=== PATIENT | male | born 1940 | race Caucasian/White ===

== ENCOUNTER 2018-11-05 09:55 | Emergency (ER) | payer MEDICARE, OTHER ==
[2018-11-05] MEDS ORDERED: OXYCODONE HCL IR 5 MG TABLET PO ONE (10:57)
--- NOTE | 2018-11-05 10:59 | ER Document Report ---
ED General - General Chief Complaint: Facial Swelling Stated Complaint: POSSIBLE ALLERGIC REACTION Time Seen by Provider: 11/05/18 10:01 Notes: Patient is a 78-year-old male that presents to the emergency department for chief complaint of lip swelling. Patient states that he was taking oxycodone for pain, after his bilateral total knee arthroplasty, but they switched him to codeine 15mg tablets, because the oxycodone was not helping, he took a dose Tuesday night, and then a second dose last night, before going to bed, he woke up early this morning around 4 AM and noticed that his left lip seems swollen, and then it progressed onto the right side, and it seemed to get worse so he decided to call EMS to bring him to the emergency department. EMS administered 125 mg of Solu-Medrol, 0.3 mg of IM epinephrine, 50 mg of ranitidine, and 25 mg of Benadryl. Patient states that he denied having any shortness of breath or difficulty breathing, or wheezing, nausea, vomiting lightheadedness or abdominal pain. He states that he feels that the lip swelling is going down to a degree. Denies having any throat pain or throat itching. Past Medical History: Osteoarthritis, BPH Past Surgical History: Bilateral total knee arthroplasty Social History: Denies tobacco, alcohol or drug use. Family History: Reviewed and noncontributory for presenting illness Allergies: Reviewed, see documented allergy list. REVIEW OF SYSTEMS: Other than noted above, the 12 point review of systems was reviewed with the patient and were negative, all pertinent findings are included in the HPI. PHYSICAL EXAMINATION: Vital signs reviewed, nursing noted reviewed. GENERAL: Well-appearing, well-nourished and in no acute distress. HEAD: Atraumatic, normocephalic. EYES: Eyes appear normal, extraocular movements intact, sclera anicteric, conjunctiva are normal. ENT: nares patent, oropharynx clear without exudates. Moist mucous membranes. Lower lip angioedema noted, soft, nontender, no uvular edema, posterior pharynx is clear and open. The tongue is soft, no tongue angioedema. NECK: Normal range of motion, supple without lymphadenopathy LUNGS: Breath sounds clear to auscultation bilaterally and equal. No wheezes rales or rhonchi. HEART: Regular rate and rhythm without murmurs ABDOMEN: Soft, nontender, normoactive bowel sounds. No rebound, guarding, or rigidity. No masses appreciated. EXTREMITIES: Pain with range of motion of the knees bilaterally, but this is chronic and unchanged, as patient recently had total knee arthroplasty, no appreciation of erythema, or significant warmth, or evidence of infection on exam, scars appear to be healing well. Otherwise his extremity exam is grossly unremarkable, with good range of motion, no pitting or edema. NEUROLOGICAL: No focal neurological deficits. Moves all extremities spontan eously Motor and sensory grossly intact on exam. PSYCH: Normal mood, normal affect. SKIN: Warm, Dry, normal turgor, no rashes or lesions noted on exposed skin - Related Data Allergies/Adverse Reactions: codeine Allergy (Severe, Verified 11/05/18 10:59) Lips swelled Past Medical History - Social History Smoking Status: Former Smoker Frequency of alcohol use: None Drug Abuse: None Family History: Reviewed & Not Pertinent Patient has suicidal ideation: No Patient has homicidal ideation: No - Past Medical History Cardiac Medical History: Reports: Hx Hypercholesterolemia Pulmonary Medical History: Reports: Hx COPD - +sleep apnea Renal/ Medical History: Denies: Hx Peritoneal Dialysis Past Surgical History: Reports: Hx Appendectomy, Hx Orthopedic Surgery - b/l TKRs 08/2018, L rotator cuff, Hx Tonsillectomy - Immunizations Hx Diphtheria, Pertussis, Tetanus Vaccination: Yes Physical Exam - Vital signs Vitals: Temp Resp BP Pulse Ox 98.4 F 16 170/67 H 98 11/05/18 10:03 11/05/18 10:03 11/05/18 10:03 11/05/18 10:03 Course - Re-evaluation Re-evalutation: Patient seen and examined vital signs reviewed. Patient was evaluated and treated as appropriate for the patient's presenting symptoms and complaint, with consideration of any critical or life threatening conditions that may be associated with their obtained history and exam as noted above. Patient was treated with medications as administered by EMS The patient was re-evaluated and was stable, no tongue edema or uvular edema, patient was monitored for over an hour after epinephrine administration, no tachycardia, or chest pain. Evaluation was most consistent with angioedema, suspected allergic reaction secondary to codeine as this was a second dose when he had the angioedema episode. Patient was advised as far as pain control, to take oxycodone as prescribed, and take scheduled Tylenol as well as warm compresses to help with pain. Plan of care was discussed with the patient at this point, after careful consideration I feel that that patient can be discharged from the emergency department, the patient was educated treatments and reasons to return to the emergency department based on their presumed diagnosis as noted above, they were advised to followup with a primary care physician in 2-3 days. Patient was agreeable to plan of care. *Note is created using voice recognition software and may contain spelling, syntax or grammatical errors. - Vital Signs Vital signs: Temp Pulse Resp BP Pulse Ox 97.6 F 14 157/71 H 96 11/05/18 11:38 11/05/18 11:31 11/05/18 11:31 11/05/18 11:31 Discharge - Discharge Clinical Impression: Allergic reaction Qualifiers: Encounter type: initial encounter Qualified Code(s): T78.40XA - Allergy, unspecified, initial encounter Angioedema Qualifiers: Encounter type: initial encounter Qualified Code(s): T78.3XXA - Angioneurotic edema, initial encounter Knee pain Qualifiers: Chronicity: chronic Laterality: bilateral Qualified Code(s): M25.561 - Pain in right knee Condition: Stable Disposition: HOME, SELF-CARE Instructions: Acute Allergic Reaction to Drugs ([facility]) Additional Instructions: Please monitor for signs of worsening allergic reaction including worsening lip swelling or tongue swelling or difficulty breathing or feeling like her throat is closing. You should start taking Tylenol 1000 mg (the 2 extra strength Tylenol) every 8 hours, do not take any more or less than this, to help with your baseline pain. He should also take the prescribed oxycodone as needed every 6-8 hours for breakthrough type pain, I would encourage you to take this 30 minutes prior to any strenuous activity such as physical therapy. He should be aware that he cannot drive, or operate any machinery or tools while taking oxycodone. You should also use cool or warm compresses for 20 minutes on and 20 minutes off to both your knees to help with swelling and pain. Please follow-up with your primary care physician as well as orthopedic surgeon. Prescriptions: RX: Oxycodone HCl 15 mg PO Q8H PRN #15 tablet PRN Reason: knee pain Referrals: RACHAEL FRANK MD [Primary Care Provider] - Follow up as needed
[2018-11-05 11:34] VITALS: BP 157/71
== END 2018-11-05 11:40 | disposition home or self-care (01) ==
LOC: ER 09:55
DX: T78.3XXA Angioneurotic edema, initial encounter (principal); M25.561 Pain in right knee; J44.9 Chronic obstructive pulmonary disease, unspecified; Z96.653 Presence of artificial knee joint, bilateral; Z87.891 Personal history of nicotine dependence
CPT/HCPCS: 99283; A9270

== ENCOUNTER 2018-11-24 23:05 | Emergency (ER) | payer MEDICARE, OTHER ==
[2018-11-24] MEDS ORDERED: EPINEPHRINE INJ/PF 1 MG/1 ML AMPULE IM ONE (23:40)
[2018-11-24] MEDS ORDERED: DIPHENHYDRAMINE HCL 50 MG/ML VIAL IV ONE (23:41)
[2018-11-24] MEDS ORDERED: METHYLPREDNISOLONE INJ 125 MG/2 ML SDV IV ONE (23:41)
[2018-11-24] MEDS ORDERED: FAMOTIDINE INJ/PF 20 MG/2 ML SDV IV ONE (23:41)
--- NOTE | 2018-11-24 23:43 | ER Document Report ---
ED Medical Screen (RME) - General Chief Complaint: Allergic Reaction Stated Complaint: POSSIBLE ALLERGIC REACTION Time Seen by Provider: 11/24/18 23:39 Primary Care Provider: RACHAEL FRANK MD [Primary Care Provider] - Follow up as needed Notes: 78-year-old male with chief complaint of facial swelling, symptoms started just prior to arrival, he states he had the same symptoms just over 2 weeks ago when he started taking codeine, he is being given Percocet for his knees. He reports feeling itching over his body, denies difficulty swallowing or breathing, denies any other symptoms. Generally very healthy with mild COPD as his only reported history at this time. TRAVEL OUTSIDE OF THE [place] IN LAST 30 DAYS: No - Related Data Allergies/Adverse Reactions: codeine Allergy (Severe, Verified 11/05/18 10:59) Lips swelled Past Medical History - Past Medical History Cardiac Medical History: Reports: Hx Hypercholesterolemia Pulmonary Medical History: Reports: Hx COPD - +sleep apnea Renal/ Medical History: Denies: Hx Peritoneal Dialysis Past Surgical History: Reports: Hx Appendectomy, Hx Orthopedic Surgery - b/l TKRs 08/2018, L rotator cuff, Hx Tonsillectomy - Immunizations Hx Diphtheria, Pertussis, Tetanus Vaccination: Yes Course - Re-evaluation Re-evalutation: Per the previous note when this happened I am epinephrine, 25 mg of IV Benadryl, to 125 mg of IV Solu-Medrol, and an H2 oni without any adverse effects and complete resolution of patient's symptoms. This was ordered. Doctor's Discharge - Discharge Referrals: RACHAEL FRANK MD [Primary Care Provider] - Follow up as needed
--- NOTE | 2018-11-25 00:02 | ER Document Report ---
ED General - General Chief Complaint: Allergic Reaction Stated Complaint: POSSIBLE ALLERGIC REACTION Time Seen by Provider: 11/24/18 23:39 Primary Care Provider: RACHAEL FRANK MD [Primary Care Provider] - 11/27/18 Notes: Patient is a very pleasant 78-year-old male who presents with complaint of allergic reaction. Said today he started having some swelling to left side of face. He did not initially notice a rash but on evaluation as he does get hives over his torso which he just now noticed now in our new. He had a similar reaction that was much more severe about 2 weeks ago after being started on codeine. Codeine was stopped and he was placed back on oxycodone. He says over the last 1-2 days he is taking the oxycodone more frequently and then today started having a reaction. He is unsure if it is related to the oxycodone but there is no other new medications that he has been started on. He does not take any SANJANA inhibitors or any medication for high blood pressure. He denies any difficulty breathing or swallowing at this time. He has no other complaints at this time. He was placed on the oxycodone by his orthopedist because of knee surgery back in August. TRAVEL OUTSIDE OF THE [place] IN LAST 30 DAYS: No - Related Data Allergies/Adverse Reactions: codeine Allergy (Severe, Verified 11/05/18 10:59) Lips swelled oxycodone Allergy (Severe, Verified 11/25/18 02:55) Lips swelled Past Medical History - Social History Smoking Status: Former Smoker Frequency of alcohol use: None Drug Abuse: None Family History: Reviewed & Not Pertinent - Past Medical History Cardiac Medical History: Reports: Hx Hypercholesterolemia Pulmonary Medical History: Reports: Hx COPD - +sleep apnea Renal/ Medical History: Denies: Hx Peritoneal Dialysis Past Surgical History: Reports: Hx Appendectomy, Hx Orthopedic Surgery - b/l TKRs 08/2018, L rotator cuff, Hx Tonsillectomy - Immunizations Hx Diphtheria, Pertussis, Tetanus Vaccination: Yes Review of Systems - Review of Systems Notes: My Normal Review Basic REVIEW OF SYSTEMS: CONSTITUTIONAL : Denies fever, chills, or sweats. Denies recent illness. EENT: Facial swelling on left side RESPIRATORY: Denies cough, cold, or chest congestion. Denies shortness of breath, difficulty breathing, or wheezing. GASTROINTESTINAL: Denies abdominal pain. Denies nausea, vomiting, or diarrhea. GENITOURINARY: Denies difficulty urinating, painful urination, burning, frequency, or blood in urine. SKIN: Hives-like lesions on torso NEUROLOGICAL: Denies altered mental status or loss of consciousness. ALL OTHER SYSTEMS REVIEWED AND NEGATIVE. Physical Exam - Vital signs Vitals: Resp Pulse Ox 13 97 11/24/18 23:54 11/24/18 23:54 - Notes Notes: General Appearance: Well nourished, alert, cooperative, no acute distress, no obvious discomfort. Vitals: reviewed, See vital signs table. Head: no swelling or tenderness to the head Eyes: PERRL, EOMI, Conjuctiva clear Mouth: Swelling to the left side of face and into the left lower lip. No tongue swelling. No pharyngeal swelling. End of the secretions without difficulty. Lungs: No wheezing, No rales, No rhonci, No accessory muscle use, good air exchange bilaterally. Heart: Normal rate, Regular rythm, No murmur, no rub Abdomen: Normal BS, soft, No rigidity, No abdominal tenderness, No guarding, no rebound Extremities: good pulses in all extremities, no swelling or tenderness in the extremities, no edema. Skin: Few hives-like lesions on abdomen. Neuro: speech clear, oriented x 3, normal affect, responds appropriately to questions. Course - Re-evaluation Re-evalutation: 11/25/18 01:39 On reevaluation patient swelling is going down and he is feeling improved. 11/25/18 02:37 Facial swelling is gone. Patient continues look well and feels improved. Patient will be discharged home with instructions to stop oxycodone. I will start him on gabapentin to see if this helps with his pain and to help prevent any withdrawal from opiate medications. Encouraged him to take Tylenol Motrin for pain. Patient agrees with plan will be discharged home. 11/25/18 06:45 Dictation of this chart was performed using voice recognition software; therefore, there may be some unintended grammatical errors. - Vital Signs Vital signs: Temp Pulse Resp BP Pulse Ox 16 145/69 H 94 11/25/18 02:21 11/25/18 02:21 11/25/18 02:21 Discharge - Discharge Clinical Impression: Facial swelling Allergic reaction Qualifiers: Encounter type: initial encounter Qualified Code(s): T78.40XA - Allergy, unspecified, initial encounter Condition: Good Disposition: HOME, SELF-CARE Additional Instructions: Please top taking the oxycodone. You can take Tylenol and Ibuprofen to help with your knee pain. I have prescribed gabapentin to help diminish and withdrawl from stopping the oxycodone. the gabapentin will sometimes cause sleepiness similar to the oxycodone. Do not stop the gabapentin abruptly. You will need to be weaned down off of it by your doctor. Please follow up with your doctor on tuesday for reevaluation. please return to the ER immediately if you develop vomiting, severe pain, recurrent rash, or recurrent facial swelling. Prescriptions: RX: Gabapentin [Neurontin 100 mg Capsule] 100 mg PO TID #30 capsule Ondansetron [Zofran Odt 4 mg Tablet] 1 tab PO Q4H PRN #15 tab.rapdis PRN Reason: For Nausea/Vomiting Referrals: RACHAEL FRANK MD [Primary Care Provider] - 11/27/18
[2018-11-25 02:26] VITALS: BP 145/69
== END 2018-11-25 02:53 | disposition home or self-care (01) ==
LOC: ER 23:05
DX: R22.0 Localized swelling, mass and lump, head (principal); T78.40XA Allergy, unspecified, initial encounter; X58.XXXA Exposure to other specified factors, initial encounter; E78.00 Pure hypercholesterolemia, unspecified; J44.9 Chronic obstructive pulmonary disease, unspecified; Z96.653 Presence of artificial knee joint, bilateral; Z88.6 Allergy status to analgesic agent
CPT/HCPCS: 99283; 96374; 96375; J1200; J2930; S0028

== ENCOUNTER 2018-12-04 07:15 | Emergency (ER) | payer MEDICARE, OTHER ==
[2018-12-04] MEDS ORDERED: FAMOTIDINE INJ/PF 20 MG/2 ML SDV IV ONE (07:35)
[2018-12-04] MEDS ORDERED: DIPHENHYDRAMINE HCL 50 MG/ML VIAL IV ONE ×2 (07:35→07:36)
[2018-12-04] MEDS ORDERED: EPINEPHRINE INJ/PF 1 MG/1 ML AMPULE IM ONE (07:35)
[2018-12-04] MEDS ORDERED: METHYLPREDNISOLONE INJ 125 MG/2 ML SDV IV ONE (07:35)
--- NOTE | 2018-12-04 07:42 | ER Document Report ---
ED General - General Chief Complaint: Allergic Reaction Stated Complaint: POSSIBLE ALLERGIC REACTION Primary Care Provider: RACHAEL FRANK MD [Primary Care Provider] - Follow up as needed TRAVEL OUTSIDE OF THE [place] IN LAST 30 DAYS: No - HPI Notes: Patient is an 78-year-old male with a history of obstructive sleep apnea, COPD, chronic knee pain status post knee replacements who presents emergency dep artment complaining of sensation of tongue and throat swelling with difficulty speaking at times that began this morning with associated nasal andreina/discharge. Patient has been to the emergency department 2 other times this past month for allergic reactions. The first time was when his lip was swelling and he is not on any SANJANA inhibitor or R. The second time was on November 24 and he was found to have a hives-like reaction with left-sided facial swelling. Patient states that this time it is just his tongue and throat with no other corresponding symptoms. Patient states that he is still able to eat and drink. He has been urinating normally. He has not had any other recent illness or changes medicines aside from starting gabapentin on November 24 with the last dose being 2 days ago. No other travel, new foods/detergents/soaps. No known insect bite. Denies any headache, fever, neck pain, changes in vision/speech/mentation/hearing, sore throat, chest pain, palpitations, syncope, cough, shortness of breath, wheeze, dyspnea, abdominal pain, nausea/vomiting/diarrhea, urinary retention, dysuria, hematuria, or rash. - Related Data Allergies/Adverse Reactions: codeine Allergy (Severe, Verified 11/05/18 10:59) Lips swelled oxycodone Allergy (Severe, Verified 11/25/18 02:55) Lips swelled Past Medical History - Social History Smoking Status: Former Smoker Family History: Reviewed & Not Pertinent - Past Medical History Cardiac Medical History: Reports: Hx Hypercholesterolemia Pulmonary Medical History: Reports: Hx COPD - +sleep apnea Renal/ Medical History: Denies: Hx Peritoneal Dialysis Past Surgical History: Reports: Hx Appendectomy, Hx Orthopedic Surgery - b/l TKRs 08/2018, L rotator cuff, Hx Tonsillectomy - Immunizations Hx Diphtheria, Pertussis, Tetanus Vaccination: Yes Review of Systems - Review of Systems -: Yes All other systems reviewed and negative Physical Exam - Vital signs Vitals: Resp BP Pulse Ox 13 137/73 H 100 12/04/18 07:22 12/04/18 07:22 12/04/18 07:22 - Notes Notes: PHYSICAL EXAMINATION: GENERAL: Well-appearing, well-nourished and in no acute distress. A&Ox4. An swers questions appropriately. Moves comfortably w/o notable distress HEAD: Atraumatic, normocephalic. EYES: Pupils equal round and reactive to light, extraocular movements intact, sclera anicteric, conjunctiva are normal. ENT: EAC clear b/l. TM's intact b/l without erythema, fluid, or perforation. Nares patent and with clear discharge. oropharynx no erythema without exudates. Tonsils absent. No palatine shift. Uvula midline. No tongue protrusion. No drooling, hoarseness, or airway compromise. Moist mucous membranes. No sinus tenderness. No obvious significant lip/tongue/throat swelling at this time. + mild uvula swelling. NECK: Normal range of motion, supple without lymphadenopathy. No rigidity/meningismus. LUNGS: Breath sounds clear to auscultation bilaterally and equal. No wheezes rales or rhonchi. No retractions HEART: Regular rate and rhythm without murmurs, rubs, gallops. ABDOMEN: Soft, nontender, nondistended abdomen. No guarding, no rebound. No masses appreciated. Normal bowel sounds present. No CVA tenderness bilaterally. No hepatosplenomegaly. NEUROLOGICAL: Normal speech, normal gait. Normal sensory, motor exams PSYCH: Normal mood, normal affect. SKIN: Warm, Dry, normal turgor, no rashes or lesions noted. Course - Re-evaluation Re-evalutation: 12/04/18 07:41 Pt was immediately placed on monitor and pulse ox. Pt will be given solumedrol, benadryl, pepcid, and epinephrine. He did receive 25mg benadryl by EMS. Vitals and exam acceptable at this time. 12/04/18 12:47 Patient is an afebrile, well-hydrated, 78-year-old male who presents with uvulitis, suspect viral. Vitals are acceptable without significant tachycardia, tachypnea, or hypoxia. PE is otherwise unremarkable. Patient is nontoxic- appearing and is tolerating p.o. without difficulty. Patient has not had any deterioration in symptoms. Patient was given site Solu-Medrol, Benadryl, Pepcid, and I am epinephrine upon arrival. No labs or imaging warranted at this time. Dr. Paige was consulted who also eval'd the patient and is in agreement with assessment/plan. Low suspicion for any meningitis, sepsis, peritonsillar/pharyngeal abscess, respiratory compromise, Elio's, or other emergent systemic condition at this time. Patient is aware this condition can change from initial presentation and he needs to monitor symptoms closely. I will send him home with a prescription for a steroid taper. Patient denies being diabetic. Conservative measures otherwise for symptoms. Recheck with your PCM in 1-2 days. Return to the ED with any worsening/concerning symptoms otherwise as reviewed in discharge. Patient is in agreement. - Vital Signs Vital signs: Temp Pulse Resp BP Pulse Ox 97.8 F 13 150/77 H 94 12/04/18 07:27 12/04/18 11:01 12/04/18 11:01 12/04/18 11:01 Discharge - Discharge Clinical Impression: Uvulitis Condition: Stable Disposition: HOME, SELF-CARE Instructions: Uvula Swelling ([facility]) Additional Instructions: Maintain adequate fluid intake Take meds as directed Salt water gargles, throat sprays, mouthwash rinse, peroxide gargles tylenol/ibuprofen as needed over the counter cold medication as needed for symptoms F/u: with your PCM in 1-2 days for a recheck Consider consult with ENT for ongoing/worsening symptoms Return to the ED with any fever, worsening pain, chest pain, neck pain/stiffness, shortness of breath, cough, drooling, trouble swallowing/breathing, abdominal pain, n/v/d, rash, or worsening/concerning symptoms otherwise. Prescriptions: Prednisone [Deltasone 10 mg Tablet] 10 mg PO DAILY #18 tablet Forms: Elevated Blood Pressure Referrals: MANUEL PENALOZA DO [ASSOCIATE] - Follow up as needed RACHAEL FRANK MD [Primary Care Provider] - Follow up tomorrow
[2018-12-04] MEDS ORDERED: NORMAL SALINE 1000 ML 1,000 ML IV ONE (08:51)
[2018-12-04 13:10] VITALS: BP 141/72
== END 2018-12-04 13:14 | disposition home or self-care (01) ==
LOC: ER 07:15
DX: K12.2 Cellulitis and abscess of mouth (principal); J44.9 Chronic obstructive pulmonary disease, unspecified; R09.81 Nasal congestion; Z88.5 Allergy status to narcotic agent; Z87.891 Personal history of nicotine dependence
CPT/HCPCS: 99284; 96372; 96361; 96374; 96375; J1200; J0171; J2930; J7030; S0028

== ENCOUNTER 2018-12-25 09:01 | Emergency (ER) | payer MEDICARE, OTHER ==
[2018-12-25] MEDS ORDERED: DIPHENHYDRAMINE HCL 50 MG/ML VIAL IV ONE (09:32)
[2018-12-25] MEDS ORDERED: METHYLPREDNISOLONE INJ 125 MG/2 ML SDV IV ONE (09:33)
[2018-12-25] MEDS ORDERED: FAMOTIDINE INJ/PF 20 MG/2 ML SDV IV ONE (09:33)
--- NOTE | 2018-12-25 09:35 | ER Document Report ---
ED Medical Screen (RME) - General Chief Complaint: Allergic Reaction Stated Complaint: POSSIBLE ALLERGIC REACTION Time Seen by Provider: 12/25/18 09:32 Primary Care Provider: RACHAEL FRANK MD [Primary Care Provider] - Follow up as needed Mode of Arrival: Ambulatory Information source: Patient Notes: 78-year-old male presents with right-sided facial swelling and lip swelling that started yesterday. Patient has had prior similar symptoms and states this is the third time this is happened over the last 2 months. Patient did administer his own EpiPen approximately 1 hour prior to arrival. He states that this did not help with the swelling. Patient denies any shortness of breath, difficulty swallowing. He is not currently taking lisinopril. I have greeted and performed a rapid initial assessment of this patient. A comprehensive ED assessment and evaluation of the patient, analysis of test results and completion of medical decision making process we will be contacted by additional ED providers. PHYSICAL EXAMINATION: Vital signs reviewed GENERAL: Well-appearing, well-nourished and in no acute distress. LUNGS: No respiratory distress, airway patent, no stridor Musculoskeletal: Normal range of motion NEUROLOGICAL: Normal speech, normal gait. PSYCH: Normal mood, normal affect. SKIN: Warm, Dry, normal turgor, no rashes or lesions noted. TRAVEL OUTSIDE OF THE [place] IN LAST 30 DAYS: No - HPI Onset: Yesterday Onset/Duration: Sudden Quality of pain: No pain Severity: None Associated Symptoms: None. denies: Chest pain, Fever, Headache, Nausea, Shortness of breath, Vomiting Exacerbated by: Denies Relieved by: Denies Similar symptoms previously: Yes Recently seen / treated by doctor: Yes - Related Data Smoking: Non-smoker Frequency of alcohol use: None Drug Abuse: None Allergies/Adverse Reactions: codeine Allergy (Severe, Verified 12/25/18 09:04) Lips swelled oxycodone Allergy (Severe, Verified 12/25/18 09:04) Lips swelled Past Medical History - Social History Chew tobacco use (# tins/day): No Frequency of alcohol use: None Drug Abuse: None - Past Medical History Cardiac Medical History: Reports: Hx Hypercholesterolemia Pulmonary Medical History: Reports: Hx COPD - +sleep apnea Renal/ Medical History: Denies: Hx Peritoneal Dialysis Past Surgical History: Reports: Hx Appendectomy, Hx Orthopedic Surgery - b/l TKRs 08/2018, L rotator cuff, Hx Tonsillectomy - Immunizations Hx Diphtheria, Pertussis, Tetanus Vaccination: Yes Physical Exam - Vital signs Vitals: Temp Pulse Resp BP Pulse Ox 97.6 F 83 16 147/64 H 96 12/25/18 09:05 12/25/18 09:05 12/25/18 09:05 12/25/18 09:05 12/25/18 09:05 Course - Vital Signs Vital signs: Temp Pulse Resp BP Pulse Ox 97.6 F 83 16 147/64 H 96 12/25/18 09:05 12/25/18 09:05 12/25/18 09:05 12/25/18 09:05 12/25/18 09:05 Doctor's Discharge - Discharge Referrals: RACHAEL FRANK MD [Primary Care Provider] - Follow up as needed
--- NOTE | 2018-12-25 12:52 | ER Document Report ---
ED General - General Chief Complaint: Allergic Reaction Stated Complaint: POSSIBLE ALLERGIC REACTION Time Seen by Provider: 12/25/18 09:32 Primary Care Provider: RACHAEL FRANK MD [Primary Care Provider] - Follow up as needed Mode of Arrival: Ambulatory TRAVEL OUTSIDE OF THE [place] IN LAST 30 DAYS: No - HPI Notes: Patient presents emergency department for evaluation of facial and lip swelling. He has had this for times previously. At first he was told he was allergic to codeine, then oxycodone. Then it was thought he may be was allergic to Orajel. He gave himself epinephrine prior to arrival. He denies any swelling of the tongue, no difficulty speaking, swallowing, breathing. He denies any pain at this time. He has not seen allergy/immunology. He is not currently on any sort of antihistamines. He denies any acute concerns at this time. His and daughter are concerned because he had a sore from his dentures. They are concerned that there might be an infection there. 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 He has had no problem with them, has finished rehab. - Related Data Allergies/Adverse Reactions: codeine Allergy (Severe, Verified 12/25/18 09:04) Lips swelled oxycodone Allergy (Severe, Verified 12/25/18 09:04) Lips swelled Past Medical History - General Information source: Patient, Relative - Social History Smoking Status: Former Smoker Chew tobacco use (# tins/day): No Frequency of alcohol use: None Drug Abuse: None Family History: Reviewed & Not Pertinent Patient has suicidal ideation: No Patient has homicidal ideation: No - Past Medical History Cardiac Medical History: Reports: Hx Hypercholesterolemia Pulmonary Medical History: Reports: Hx COPD - +sleep apnea Renal/ Medical History: Denies: Hx Peritoneal Dialysis Past Surgical History: Reports: Hx Appendectomy, Hx Orthopedic Surgery - b/l TKRs 08/2018, L rotator cuff, Hx Tonsillectomy - Immunizations Hx Diphtheria, Pertussis, Tetanus Vaccination: Yes Review of Systems - Review of Systems Constitutional: No symptoms reported EENT: See HPI Cardiovascular: No symptoms reported Respiratory: No symptoms reported Gastrointestinal: No symptoms reported Musculoskeletal: No symptoms reported Skin: No symptoms reported Physical Exam - Vital signs Vitals: Temp Pulse Resp BP Pulse Ox 97.6 F 83 16 147/64 H 96 02/25/19 09:05 12/25/18 09:05 12/25/18 09:05 12/25/18 09:05 12/25/18 09:05 Interpretation: Hypertensive - Notes Notes: Vital signs reviewed, please refer to chart. Patient is normocephalic, atraumatic. Pupils equal round, reactive to light. Oral mucosa is moist. There is granulation tissue, approximately 1 cm, to the right gum ridge on the mandible. There is no surrounding erythema, edema, induration. No swelling of the tongue. There is moderate amount of swelling of the right lower cheek as well as the right lower lip. No significant tenderness. No bleeding. Neck is supple without meningismus. Heart is regular rate and rhythm. Lungs are clear to auscultation bilaterally. Abdomen is soft, nontender, normoactive bowel sounds throughout. Extremities without cyanosis, clubbing, edema. Bilateral knee arthroplasties are well-healing without signs of wound dehiscence, erythema, or signs of infection. Peripheral pulses are equal. Skin is warm and dry. Patient is awake, alert, neurological exam is nonfocal. Course - Re-evaluation Re-evalutation: 12/25/18 13:05 Presents emergency department for evaluation of angioedema. He did slowly improve throughout the course of his stay. He has had multiple bouts of this. I do believe at this time it is appropriate for this patient to be referred on to allergy and immunology. I expanded the patient I will start him on Zyrtec. I do know that this is a relative contra indication in his age group, but he is young appearing and healthy. We did discuss the possible side effects of this medication in depth. Both he and his voiced understanding. We will also send him home on prednisone. He is to seek out referral to allergy and immunology from his primary care physician. He is to return to the emergency department with worsening or new concerning symptoms of any sort. - Vital Signs Vital signs: Temp Pulse Resp BP Pulse Ox 97.9 F 69 16 142/65 H 93 12/25/18 11:43 12/25/18 11:43 12/25/18 11:43 12/25/18 11:43 12/25/18 11:43 Discharge - Discharge Clinical Impression: Angioedema Disposition: HOME, SELF-CARE Instructions: Angioedema (OM) Additional Instructions: Take prednisone as directed until gone. Take Zyrtec daily. Seek out referral to an helicopter pilot from your primary care physician. Return to the emergency department with worsening or new concerning symptoms. Referrals: RACHAEL FRANK MD [Primary Care Provider] - Follow up as needed
[2018-12-25 13:30] VITALS: BP 149/62
== END 2018-12-25 13:32 | disposition home or self-care (01) ==
LOC: ER 09:01
DX: T78.3XXA Angioneurotic edema, initial encounter (principal); X58.XXXA Exposure to other specified factors, initial encounter; E78.00 Pure hypercholesterolemia, unspecified; Z88.6 Allergy status to analgesic agent; Z96.653 Presence of artificial knee joint, bilateral
CPT/HCPCS: 99283; 96374; 96375; J1200; J2930; S0028

== ENCOUNTER 2019-03-26 03:21 | Emergency (ER) | payer MEDICARE, OTHER ==
[2019-03-26] MEDS ORDERED: PREDNISONE 20 MG TABLET PO ONE (03:42)
--- NOTE | 2019-03-26 05:31 | ER Document Report ---
ED General - General Chief Complaint: Allergic Reaction Stated Complaint: POSSIBLE ALLERGIC REACTION Time Seen by Provider: 03/26/19 03:36 Primary Care Provider: RACHAEL FRANK MD [Primary Care Provider] - Follow up as needed Notes: Patient is a pleasant 78-year-old male presents with complaint of possible allergic reaction. This is his fifth or sixth visit to the ER for same presentation. You develop symptoms while he to the face. Sometimes well for rash or hives-like reaction. The exact cause of why this is happening is not clear. He said he woke up this morning with some swelling to the right side of his face and to his lips. He did use an EpiPen and took Benadryl and therefore came to the ER. He denies any difficulty breathing or swallowing. No other complaints at this time. He is scheduled to see the door frame builder this week. TRAVEL OUTSIDE OF THE [place] IN LAST 30 DAYS: No - Related Data Allergies/Adverse Reactions: codeine Allergy (Severe, Verified 12/25/18 09:04) Lips swelled oxycodone Allergy (Severe, Verified 12/25/18 09:04) Lips swelled Past Medical History - Social History Smoking Status: Never Smoker Frequency of alcohol use: None Drug Abuse: None Family History: Reviewed & Not Pertinent - Past Medical History Cardiac Medical History: Reports: Hx Hypercholesterolemia Pulmonary Medical History: Reports: Hx COPD - +sleep apnea Renal/ Medical History: Denies: Hx Peritoneal Dialysis Past Surgical History: Reports: Hx Appendectomy, Hx Orthopedic Surgery - b/l TKRs 08/2018, L rotator cuff, Hx Tonsillectomy - Immunizations Hx Diphtheria, Pertussis, Tetanus Vaccination: Yes Review of Systems - Review of Systems Notes: My Normal Review Basic REVIEW OF SYSTEMS: CONSTITUTIONAL : Denies fever, chills, or sweats. Denies recent illness. EENT: Lip swelling and swelling to the right side of face. CARDIOVASCULAR: Denies chest pain. RESPIRATORY: Denies cough, cold, or chest congestion. Denies shortness of breath, difficulty breathing, or wheezing. GASTROINTESTINAL: Denies abdominal pain. Denies nausea, vomiting, or diarrhea. MUSCULOSKELETAL: Denies neck or back pain or joint pain or swelling. SKIN: Denies rash or skin lesions. NEUROLOGICAL: Denies altered mental status or loss of consciousness. ALL OTHER SYSTEMS REVIEWED AND NEGATIVE. Physical Exam - Vital signs Vitals: Temp Pulse Resp BP Pulse Ox 97.7 F 65 18 132/59 H 95 03/26/19 03:28 03/26/19 03:28 03/26/19 03:28 03/26/19 03:28 03/26/19 03:28 - Notes Notes: General Appearance: Well nourished, alert, cooperative, no acute distress, no obvious discomfort. Well-appearing. Vitals: reviewed, See vital signs table. Head: no swelling or tenderness to the head Eyes: PERRL, EOMI, Conjuctiva clear Mouth: She has obvious swelling to the right side of the lips with some swelling on the right side of face. Tongue and throat are not swollen. Throat: No pharyngeal or glossal swelling. Neck: Supple, no neck tenderness, No neck swelling Lungs: No wheezing, No rales, No rhonci, No accessory muscle use, good air exchange bilaterally. Heart: Normal rate, Regular rythm, No murmur, no rub Extremities: good pulses in all extremities Skin: warm, dry, appropriate color, no rash Neuro: speech clear, oriented x 3, normal affect, responds appropriately to questions. Course - Re-evaluation Re-evalutation: 03/26/19 05:30 On reevaluation patient's lip swelling is improved dramatically. He looks well. He is managing his airway without any difficulty. There is no glossal oropharyngeal swelling. We will continue monitoring for low bit longer to make sure that his swelling continues to improve and that does not worsen in any way. Patient is agreeable to plan. 03/26/19 06:06 Swelling is almost completely gone. He still just has a slight amount but it continually improves. I feel he safe to be discharged at this time. I encouraged him to follow-up with the door frame builder has appointment this week. I will prescribe prednisone for next couple days. I have represcribed him EpiPen. I encouraged him return to ER if he has any recurrent facial swelling, tongue swelling, lip swelling, difficulty breathing or swallowing, or if he feels unwell in any way. Patient agrees with plan will be discharged home. Patient has station - Vital Signs Vital signs: Temp Pulse Resp BP Pulse Ox 97.7 F 65 18 148/63 H 94 03/26/19 03:28 03/26/19 03:28 03/26/19 03:28 03/26/19 05:01 03/26/19 05:01 Discharge - Discharge Clinical Impression: Facial swelling Condition: Good Disposition: HOME, SELF-CARE Additional Instructions: Please have a very low threshold to return to the ER immediately if you have increasing facial swelling, difficulty breathing, or difficulty swallowing. Please follow-up with your door frame builder appointment this week. Please return to the ER immediately if you have to use theEpi pen, have facial swelling, tongue swelling, throat swelling, difficulty breathing, or feel that your reaction is becoming severe. Please use the Epi pen if you have any facial swelling, tongue swelling, or difficulty breathing. Prescriptions: Epinephrine [Epipen 2-Javier] 0.3 mg IM ASDIR PRN #1 packet PRN Reason: Prednisone [Deltasone 20 mg Tablet] 2 tab PO DAILY #6 tablet
[2019-03-26 06:06] VITALS: BP 139/72
== END 2019-03-26 06:20 | disposition home or self-care (01) ==
LOC: ER 03:21
DX: R22.0 Localized swelling, mass and lump, head (principal); J44.9 Chronic obstructive pulmonary disease, unspecified; Z88.5 Allergy status to narcotic agent
CPT/HCPCS: 99283; A9270; J7512

== ENCOUNTER → 2020-04-23 | Outpatient (CLI) | payer MEDICARE, OTHER ==
--- NOTE | 2020-04-23 11:09 | RADIOLOGY REPORT (SQ) ---
EXAM DESCRIPTION: MRI LUMBAR SPINE WITHOUT IMAGES COMPLETED DATE/TIME: 04/23/2020 8:02 am REASON FOR STUDY: LOW BACK PAIN (R54.5) M54.5 LOW BACK PAIN COMPARISON: None. TECHNIQUE: Sagittal and Axial imaging includes T1, T2, STIR and gradient echo sequences. Coronal T2/ HASTE imaging. LIMITATIONS: None. FINDINGS: VISUALIZED UPPER ABDOMEN: Limited evaluation. No acute or suspicious findings suggested. SEGMENTATION: No transitional anatomy. The lowest well-developed disc space is labeled L5-S1. ALIGNMENT: Degenerative grade 1 anterolisthesis of L4 over L5 related to facet arthropathy VERTEBRAE: Intact. BONE MARROW: Mixed fatty and sclerotic vertebral body endplate change at L1-2 and L2-3 DISC SIGNAL: Diffuse decreased T2 weighted intervertebral disc signal POSTERIOR ELEMENTS: Generally intact. No pars defect evident. HARDWARE: None in the spine. CORD AND CONUS: Normal in size and signal intensity. Conus at the T12-L1 level. SOFT TISSUES: No aortic aneurysm seen. No bulky retroperitoneal adenopathy or mass. No paraspinal mas s or fluid. T12-L1: Mild bilateral facet arthropathy. No significant central or foraminal stenosis L1-L2: Bulky bilateral facet hypertrophy is present on the right side. This causes moderate right-si ded foraminal stenosis partial effacement of fat around the exiting right L1 nerve root. No central canal or left foraminal stenosis. L2-L3: Mild diffuse posterior disc bulging, moderate bilateral facet and ligament hypertrophy. Borde rline central canal stenosis. Mild bilateral foraminal narrowing without definite exiting L2 nerve r oot impingement. L3-L4: Broad diffuse posterior disc bulging, bulky by and ligament hypertrophy. Borderline central c anal narrowing. Mild right, moderate left foraminal narrowing. L4-L5: Broad diffuse posterior disc bulge and bony spurring, bulky bilateral facet and ligament hyper trophy causes mild central canal narrowing with flattening of the thecal sac into a triangular shape, best shown on axial T2 image 31. Minimal grade 1 anterolisthesis of L4 over L5. There is mild bila teral inferior foraminal narrowing without exit L4 nerve root impingement L5-S1: Mild bilateral facet hypertrophy. No central stenosis. Minimal foraminal narrowing. SACRUM: Visualized upper sacrum intact. OTHER: No other significant findings. IMPRESSION: Diffuse degenerative changes as above. TECHNICAL DOCUMENTATION: JOB ID: [id number] 2010 [employer]- All Rights Reserved Reading location - IP/workstation name: [email or web address]
== END ==
LOC: RAD 07:18
PROVIDERS: ATTEND Internal Medicine
DX: M51.87 Other intervertebral disc disorders, lumbosacral region (principal); M54.5 Low back pain
CPT/HCPCS: 72148

== ENCOUNTER → 2020-11-20 | Day surgery (SDC) | payer MEDICARE, OTHER ==
[~2020-11-20] MED LIST: BUPIVACAINE HCL 0.5 % INJ/PF 30 ML SDV ONE; METHYLPREDNISOLONE ACETATE INJ 80 MG/1 ML VIAL ONE
--- NOTE | 2020-11-20 14:51 | RADIOLOGY REPORT (SQ) ---
EXAM DESCRIPTION: INJECT/ASPIR HIP/SHLDR/KNEE; FLUORO/NEEDLE PLACEMENT IMAGES COMPLETED DATE/TIME: 11/20/2020 2:22 pm REASON FOR STUDY: PAIN IN RIGHT HIP M25.551 PAIN IN RIGHT HIP COMPARISON: None. FLUOROSCOPY TIME: 8 seconds of fluoroscopy was used. 1 images saved to PACS. LIMITATIONS: None. PROCEDURE: SITE OF INJECTION: Right hip LOCALIZING CONTRAST TYPE AND DOSE: 1 mL Omnipaque 300 MEDICATION TYPE AND DOSE: 80 mg Depo-Medrol and 5 mL Sensorcaine Using local anesthesia and sterile technique with fluoroscopic guidance, the needle was advanced into the joint. Iodinated contrast was injected to verify intraarticular placement. This was followed by therapeutic injection of the indicated medications. The needle was removed. There were no immediat e complications. Preprocedure pain level: 2/10. Postprocedure pain level: 0/10. IMPRESSION: THERAPEUTIC INJECTION OF THE RIGHT HIP JOINT ABOVE. COMMENT: Patient medication list reviewed: Yes- Quality ID# [id number]:Eligible professional attests to doc umenting in the medical record they obtained, updated, or reviewed the patient's current medications. . Quality ID 145: Final reports for procedures using fluoroscopy that document radiation exposure federico tierney, or exposure time and number of fluorographic images (if radiation exposure indices are not avail able) TECHNICAL DOCUMENTATION: JOB ID: [id number] 2010 [employer]- All Rights Reserved Reading location - IP/workstation name: [email or web address] [id number]
--- NOTE | 2020-11-20 14:51 | RADIOLOGY REPORT (SQ) ---
EXAM DESCRIPTION: INJECT/ASPIR HIP/SHLDR/KNEE; FLUORO/NEEDLE PLACEMENT IMAGES COMPLETED DATE/TIME: 11/20/2020 2:22 pm REASON FOR STUDY: PAIN IN RIGHT HIP M25.551 PAIN IN RIGHT HIP COMPARISON: None. FLUOROSCOPY TIME: 8 seconds of fluoroscopy was used. 1 images saved to PACS. LIMITATIONS: None. PROCEDURE: SITE OF INJECTION: Right hip LOCALIZING CONTRAST TYPE AND DOSE: 1 mL Omnipaque 300 MEDICATION TYPE AND DOSE: 80 mg Depo-Medrol and 5 mL Sensorcaine Using local anesthesia and sterile technique with fluoroscopic guidance, the needle was advanced into the joint. Iodinated contrast was injected to verify intraarticular placement. This was followed by therapeutic injection of the indicated medications. The needle was removed. There were no immediat e complications. Preprocedure pain level: 2/10. Postprocedure pain level: 0/10. IMPRESSION: THERAPEUTIC INJECTION OF THE RIGHT HIP JOINT ABOVE. COMMENT: Patient medication list reviewed: Yes- Quality ID# [id number]:Eligible professional attests to doc umenting in the medical record they obtained, updated, or reviewed the patient's current medications. . Quality ID 145: Final reports for procedures using fluoroscopy that document radiation exposure federico tierney, or exposure time and number of fluorographic images (if radiation exposure indices are not avail able) TECHNICAL DOCUMENTATION: JOB ID: [id number] 2010 [employer]- All Rights Reserved Reading location - IP/workstation name: [email or web address] [id number]
== END ==
LOC: RAD 13:37
PROVIDERS: ATTEND Orthopaedic Surgery Sports Medicine
DX: M25.551 Pain in right hip (principal)
CPT/HCPCS: 20610; 77002; J3490; J1040